=== PATIENT | female | born 2000 | race Caucasian/White ===

== ENCOUNTER 2021-01-16 13:41 | Emergency (ER) | payer OTHER ==
[~2021-01-16] VITALS: Ht 162.6 cm; Wt 47.6 kg
[~2021-01-16 13:41] MED LIST: CYCLOBENZAPRINE5 MG PO; NAPROSYN500 M1 PO
[2021-01-16] MEDS ORDERED: PREDNISONE 20 M20 MG PO (15:23)
[2021-01-16] MEDS ORDERED: CLARITIN10 MG PO (15:23)
[2021-01-16 15:30] VITALS: BP 104/66
== END 2021-01-16 15:50 | disposition home or self-care (01) ==
LOC: ER 13:41
DX: J06.9 Acute upper respiratory infection, unspecified (principal); Z79.1 Long term (current) use of non-steroidal anti-inflammatories (NSAID); Z79.899 Other long term (current) drug therapy; Z87.891 Personal history of nicotine dependence